=== PATIENT | male | born 1990 | race Caucasian/White ===

== ENCOUNTER 2024-01-28 11:08 | Emergency (ER) | payer BC, SELFPAY ==
--- NOTE | ~2024-01-28 | CT_ITS ---
EXAMINATION: CT abdomen pelvis w con DATE: 01/28/2024 13:39 INDICATION: Bilateral scrotal swelling. Recent vasectomy. TECHNIQUE: Computed tomography (CT) of the abdomen and pelvis was performed with 100 mL Omnipaque 350 intravenous contrast. Automated exposure control and iterative reconstruction technique were employe d. The dose-length product was 1022.66 mGy-cm. COMPARISON: None. FINDINGS: The visualized portions of the lung bases are clear without pneumonia or pleural effusion. The heart size is normal. No pericardial effusion. Pectus excavatum is noted. The liver, gallbladder, spleen, pancreas, adrenal glands, and kidneys are normal. There are no dilated loops of bowel. The a ppendix is normal. There are no pathologically enlarged lymph nodes. There is no free intraperitoneal fluid. There is diffuse scrotal skin thickening. There is a small right hydrocele. There is an umbil ical hernia containing fat. There is moderate degenerative disc disease at L5-S1. IMPRESSION: 1. Scrotal skin thickening with small right hydrocele. Reviewed, dictated and finalized at location A. NATING MACHINE FEEDER
[2024-01-28 11:09] VITALS: BP 135/78; PULSE 97; RESP 18; TEMP 36.5; O2SAT 100
[2024-01-28 11:59] VITALS: BP 132/80; PULSE 76; RESP 16; TEMP 36.6; O2SAT 100
[2024-01-28 12:01] LABS: Basophils Percent Auto 0.3 % (0.2-1.2); Eosinophils Percent Auto 0.3 % (0-4.4); Hematocrit 40.6 % (42.0-52.0); Immature Granulocyte Absolute 0.03 K/mm3 (0.00-0.031); Immature Granulocyte Percent A 0.3 % (0-0.5); Lymphocytes Absolute Auto 1.17 K/mm3 (0.9-3.2); Lymphocytes Percent Auto 11.2 % (18.3-44.2); Mean Corpuscular HGB Conc 34.5 g/dl (32-36); Mean Corpuscular Hemoglobin 30.7 pg (26-34); Monocytes Percent Auto 9.4 % (2.6-8.5); Neutrophils Absolute Auto 8.2 K/mm3 (1.3-6.7); Neutrophils Percent Auto 78.5 % (45.5-73.1); Platelet Count Result 162 k/mm3 (150-375); Red Blood Count 4.56 M/mm3 (4.6-6.20); Red Cell Distribution Width 12.3 % (11.5-14.5); White Blood Count 10.5 K/mm3 (4.5-10.0)
[2024-01-28 12:08] LABS: Add Urine Microscopic? NO; Appearance Urine Clear (Clear); Bilirubin Urine Negative (Negative); Blood Urine Negative (Negative); Color Urine Yellow (Yellow); Glucose Urine UA Negative (Negative); Ketones Urine Negative (Negative); Leukocyte Esterase Ur Negative LEU/UL (Negative); Nitrate Urine Negative (Negative); Protein Urine Negative (Negative); Specific Grav Ur 1.014 (1.001-1.035)
[2024-01-28 12:15] LABS: Alanine Aminotransferase 29 U/L (6-50); Albumin Level 4.3 g/dL (3.5-5.1); Alkaline Phosphatase 60 U/L (38-126); Anion Gap 5 mmol/L (4-12); Aspartate Amino Transferase 27 U/L (17-59); Bilirubin,Total 0.9 mg/dL (0.2-1.3); Blood Urea Nitrogen 16 mg/dL (9-20); Carbon Dioxide 28 mmol/L (22-30); Chloride 102 mmol/L (98-107); Estimated CRCL calculation 98 ml/min; Estimated Glomerular Filt Rate > 60; Glucose 96 mg/dL (65-110); Potassium 4.4 mmol/L (3.4-5.0); Sodium 135 mmol/L (137-145)
[2024-01-28 13:06] VITALS: BP 171/71; PULSE 83; RESP 17; O2SAT 100
--- NOTE | 2024-01-28 13:24 | ED.GENADULT ---
HPI - General Adult General Chief complaint: Urogenital-Male Stated complaint: infection from vasectomy Time Seen by Provider: 01/28/24 13:11 Source: patient Mode of arrival: ambulatory Limitations: no limitations History of Present Illness HPI narrative: This is a 33-year-old male who presents to the ED for chief complaint of scrotal swelling and tenderness over the past couple of days. He is 1 week s/p vasectomy with Dr. Duran (Urology), did call over to give report. He reports did see the patient this morning in clinic and drained an area of fluctuance that only produced serous fluid and no purulence. he is concerned that the area is cellulitic and does not forsee the patient needing emergent surgery. He is sending the patient over to the ER for IV antibiotics. patient states that he had a little bit of pain and swelling expected after the procedure, however over the last 24 hours he has had a rapid increase in swelling of the scrotum associated with tenderness. Reports there was some drainage. He reports a little bit of relief after the aspiration this morning in clinic but is still having significant pain. Denies fevers, chills, urinary symptoms, problems with bowel movements. Related Data Allergies Allergy/AdvReac Type Severity Reaction Status Date / Time No Known Allergies Allergy Unverified 08/29/11 10:15 Review of Systems Review of Systems: All systems as dictated in HPI Exam Narrative: GENERAL: Well-appearing, well-nourished, and in no acute distress. HEAD: Normocephalic, atraumatic. EYES: PERRLA and EOMI. ENT: Nares clear, no rhinorrhea or epistaxis. Mucous membranes moist. Oropharynx without tonsillar hypertrophy exudate or other lesions. NECK: Supple. No adenopathy or masses. CHEST: No respiratory distress. Clear to auscultation. No wheezes rales or rhonchi HEART: Regular rate and rhythm. No murmur heard. Normal peripheral pulses. ABDOMEN: Soft, nontender, nondistended, normal active bowel sounds. MSK: Normal range of motion. No edema. SKIN: Warm, dry, no rash. NEURO: Alert and oriented x4. No focal deficits. PSYCH: Normal mood and affect. : Significant scrotal edema present bilaterally, worse in the low right. Tenderness is worse on the right as well. Tenderness tracks from scrotum into the right side of the groin. There is erythema to the scrotum but no erythema to the pubic region or penis. No evidence of skin breakdown. Surgical sites appear intact Course Vital Signs Vital signs: Vital Signs Temperature 97.7 F 01/28/24 11:09 Pulse Rate 97 01/28/24 11:09 Respiratory Rate 18 01/28/24 11:09 Blood Pressure 135/78 01/28/24 11:09 Pulse Oximetry 100 01/28/24 11:09 Oxygen Delivery Room Air 01/28/24 11:09 Temperature 97.9 F 01/28/24 11:59 Pulse Rate 83 01/28/24 13:06 Respiratory Rate 17 01/28/24 13:06 Blood Pressure 171/71 H 01/28/24 13:06 Pulse Oximetry 100 01/28/24 13:06 Oxygen Delivery Room Air 01/28/24 11:59 Medical Decision Making MDM Narrative Medical decision making narrative: This is a 33-year-old male who presents to the ED for chief complaint of scrotal pain and swelling after vasectomy 1 week ago. Vitals are normal. Exam remarkable for the above with significant scrotal edema present. There is tenderness but no evidence of skin breakdown or gangrene. Lab work shows mildly elevated white count of 10.5. CMP unremarkable. Urinalysis grossly normal. CT abdomen pelvis with IV contrast: IMPRESSION: 1. Scrotal skin thickening with small right hydrocele. During the patient's course, he was given IV pain medications, fluids and Ancef. I discussed the case with his urologist to is stating that he will be out of town and unable to see the patient. There is no on else on staff for this urologist to see the patient. I then spoke with our hospitalist about admitting the patient for observation and IV antibiotics. She was requesting of phone call to our urologist 1st. Was able to speak with Dr. Srivastava (Urology) who was able to see the patient. He feels that the patient is stable for discharge home and actually called the patient's urologist. Urology is requesting that patient is getting a jockstrap for scrotal elevation. Directly after the patient was discharged, I did get a call from Dr. Srivastava requesting Vanco per Dr. Duran (Pt's surgeon), however the patient had already left the department by the time this occurred. I do feel the patient received appropriate treatment with Ancef alone here today. He is receiving Bactrim outpatient which will have MRSA coverage if needed. Patient will be discharged in stable condition. Supportive measures discussed and return precautions given. Patient is understanding and agreeable with plan for discharge with PCP/urology follow-up. Vital Signs Vital Signs: Vital Signs Temperature 97.7 F 01/28/24 11:09 Pulse Rate 97 01/28/24 11:09 Respiratory Rate 18 01/28/24 11:09 Blood Pressure 135/78 01/28/24 11:09 Pulse Oximetry 100 01/28/24 11:09 Oxygen Delivery Room Air 01/28/24 11:09 Temperature 97.9 F 01/28/24 11:59 Pulse Rate 83 01/28/24 13:06 Respiratory Rate 17 01/28/24 13:06 Blood Pressure 171/71 H 01/28/24 13:06 Pulse Oximetry 100 01/28/24 13:06 Oxygen Delivery Room Air 01/28/24 11:59 Lab Data 01/28/24 11:55 01/28/24 11:55 Labs: Lab Results 01/28/24 01/28/24 Range/Units 11:55 12:02 WBC 10.5 H (4.5-10.0) K/mm3 RBC 4.56 L (4.6-6.20) M/mm3 Hgb 14.0 (14.0-18.0) g/dL Hct 40.6 L (42.0-52.0) % MCV 89.0 (80-100) fl MCH 30.7 (26-34) pg MCHC 34.5 (32-36) g/dl RDW 12.3 (11.5-14.5) % Plt Count 162 (150-375) k/mm3 MPV 11.0 H (7.4-10.4) fl Immature Gran % (Auto) 0.3 (0-0.5) % Neut % (Auto) 78.5 H (45.5-73.1) % Lymph % (Auto) 11.2 L (18.3-44.2) % [place] % (Auto) 9.4 H (2.6-8.5) % Eos % (Auto) 0.3 (0-4.4) % Baso % (Auto) 0.3 (0.2-1.2) % Lymph # (Auto) 1.17 (0.9-3.2) K/mm3 [place] # (Auto) 1.0 H (0.1-0.6) K/mm3 Eos # (Auto) 0.0 (0-0.3) K/mm3 Baso # (Auto) 0.0 (0.0-0.1) K/mm3 Abs Immat Gran (auto) 0.03 (0.00-0.031) K/mm3 Absolute Neuts (auto) 8.2 H (1.3-6.7) K/mm3 Absolute Nucleated RBC 0.000 (0.0-0.012) K/mm3 Nucleated RBC % 0.0 (0.0-0.2) % Sodium 135 L (137-145) mmol/L Potassium 4.4 (3.4-5.0) mmol/L Chloride 102 (98-107) mmol/L Carbon Dioxide 28 (22-30) mmol/L Anion Gap 5 (4-12) mmol/L BUN 16 (9-20) mg/dL Creatinine 1.10 (0.7-1.3) mg/dL Estim Creat Clear Calc 98 ml/min Estimated GFR > 60 (59 - ) Glucose 96 (65-110) mg/dL Calcium 9.0 (8.4-10.2) mg/dL Total Bilirubin 0.9 (0.2-1.3) mg/dL AST 27 (17-59) U/L ALT 29 (6-50) U/L Alkaline Phosphatase 60 (38-126) U/L Total Protein 7.0 (6.3-8.2) g/dL Albumin 4.3 (3.5-5.1) g/dL Urine Color Yellow (Yellow) Urine Appearance Clear (Clear) Urine pH 6.0 (5.0-9.0) Ur Specific [place] 1.014 (1.001-1.035) Urine Protein Negative (Negative) mg/dL Urine Glucose (UA) Negative (Negative) mg/dL Urine Ketones Negative (Negative) mg/dL Ur Blood (Man) Negative (Negative) Urine Nitrate Negative (Negative) Urine Bilirubin Negative (Negative) Urine Urobilinogen 1.0 (<2.0) mg/dL Leukocyte Esterase Rfl Negative (Negative) RANDA/UL Discharge Plan Discharge Clinical Impression: Cellulitis of scrotum Patient Disposition: Home, Self-Care Condition: Stable Instructions: Antibiotic Form Additional Instructions: Exam and imaging today are reassuring overall. There is no abscess. Please continue taking previously prescribed antibiotics at home. Use Toradol for regular pain control and avoid other NSAIDs with this. You can take Tylenol as well. Use [place] for breakthrough pain. Do not exceed 4000 mg of acetaminophen and 1 day. If you have any new or worsening symptoms please return to the ER for further evaluation. Prescriptions: New ketorolac 10 mg tablet 10 mg PO Q8H PRN (Reason: pain) Qty: 15 0RF Rx Instructions: maximum total duration of 5 days from all oral, intranasal, or parenteral formulations hydrocodone-acetaminophen 5-325 mg tablet 1 tablet PO Q8H PRN (Reason: pain) Qty: 14 0RF Follow-up/Referrals: PHYSICIAN,ANESTHESIOLOGY TEACHER [Non-Staff] - Time of Disposition: 15:54
[2024-01-28] MEDS: ceFAZolin 1 GM/NS 50 ML 1 GM/50 ML BAG IVPB (13:39)
[2024-01-28] MEDS: ONDANSETRON INJ 4 MG/2 ML VIAL IV PUSH (13:39)
[2024-01-28] MEDS: KETOROLAC 30 MG/ML VIAL (*BKC) IV PUSH (13:39)
[2024-01-28] MEDS: SODIUM CHLORIDE 0.9% IV 1,000 ML 999 ML IV CONT (13:39)
--- NOTE | 2024-01-28 15:54 | P.CONUR_ITS ---
Assessment and Plan Assessment and plan (1) Cellulitis of scrotum: Code(s): N49.2 - Inflammatory disorders of scrotum Status: Acute Plan This is a very pleasant 33-year-old gentleman with scrotal edema/ cellulitis status post vasectomy postop day 6. - CT scan imaging and physical examination not consistent with any additional drainable collections. The patient is hemodynamically stable. - I spoke with Dr. Duran his urologist. Was requested IV vancomycin prior to discharge. - Patient encouraged to elevate scrotum. He will complete his antibiotics. He will follow-up with his local urologist next week. Urology Consult Note HPI Date Seen: 01/28/24 Primary Care Provider: UNKNOWN,DOCTOR Consult Narrative Narrative: Joel Gray is a 33 year old male who presented to the ER today. He underwent vasectomy with Dr. Duran January 21, 2024. The patient did well for the 1st 4 days after the procedure and then had worsening scrotal swelling. He went to urgent care where he was started on oral antibiotics ( Bactrim ). The patient then followed up with Dr. Lechuga earlier today where proximally 20cc of fluid was drained. The patient was sent to the ER for further evaluation and IV antibiotics. Meds Home Medications and Allergies Home Medications Medication Instructions Recorded Confirmed Type hydrocodone 5 mg-acetaminophen 325 1 tablet PO Q8H PRN pain #14 tabs 01/28/24 Rx mg tablet ketorolac 10 mg tablet 10 mg PO Q8H PRN pain #15 tabs 01/28/24 Rx Allergies Allergy/AdvReac Type Severity Reaction Status Date / Time No Known Allergies Allergy Unverified 08/29/11 10:15 Vital Signs Vital Signs - 24 hr 01/28/24 11:09 01/28/24 11:59 01/28/24 13:06 Temperature 36.5 C 36.6 C Pulse Rate 97 76 83 Respiratory Rate 18 16 17 Blood Pressure 135/78 132/80 171/71 H Pulse Oximetry 100 100 100 Oxygen Delivery Room Air Room Air Exam Narrative: The patient is awake alert. He is no acute distress. His breathing is labored. His abdomen is soft nontender nondistended. The patient penis is normal without significant edema. The patient has scrotal swelling right more than left. There is no fluctuance. There is well-healed incisions x3 in the scrotum. There is no drainage. Results Labs 01/28/24 11:55 01/28/24 11:55 Labs: Short CBC 01/28/24 Range/Units 11:55 WBC 10.5 H (4.5-10.0) K/mm3 Hgb 14.0 (14.0-18.0) g/dL Hct 40.6 L (42.0-52.0) % Plt Count 162 (150-375) k/mm3 BMP 01/28/24 11:55 Sodium 135 L Potassium 4.4 Chloride 102 Carbon Dioxide 28 BUN 16 Creatinine 1.10 Glucose 96 Calcium 9.0 Liver Function 01/28/24 Range/Units 11:55 Total Bilirubin 0.9 (0.2-1.3) mg/dL AST 27 (17-59) U/L ALT 29 (6-50) U/L Alkaline Phosphatase 60 (38-126) U/L Albumin 4.3 (3.5-5.1) g/dL Urine 01/28/24 Range/Units 12:02 Urine Color Yellow (Yellow) Urine Appearance Clear (Clear) Urine pH 6.0 (5.0-9.0) Ur Specific [place] 1.014 (1.001-1.035) Urine Protein Negative (Negative) mg/dL Urine Glucose (UA) Negative (Negative) mg/dL Date of Service: 01/28/24 Procedure(s): CT abdomen pelvis w con Accession Number(s): [id number] cc: Joel Meza PA-C; WEB APPLICATION DEV SPECIALIST PHYSICIAN~ EXAMINATION: CT abdomen pelvis w con DATE: 01/28/2024 13:39 INDICATION: Bilateral scrotal swelling. Recent vasectomy. TECHNIQUE: Computed tomography (CT) of the abdomen and pelvis was performed with 100 mL Omnipaque 350 intravenous contrast. Automated exposure control and iterative reconstruction technique were employed. The dose-length product was 1022.66 mGy-cm. COMPARISON: None. FINDINGS: The visualized portions of the lung bases are clear without pneumonia or pleural effusion. The heart size is normal. No pericardial effusion. Pectus excavatum is noted. The liver, gallbladder, spleen, pancreas, adrenal glands, and kidneys are normal. There are no dilated loops of bowel. The appendix is normal. There are no pathologically enlarged lymph nodes. There is no free intraperitoneal fluid. There is diffuse scrotal skin thickening. There is a small right hydrocele. There is an umbilical hernia containing fat. There is moderate degenerative disc disease at L5-S1. IMPRESSION: 1. Scrotal skin thickening with small right hydrocele. Reviewed, dictated and finalized at location A. ONAL INSURANCE ADVISOR
== END 2024-01-28 16:00 | disposition home or self-care (01) ==
PROVIDERS: Emergency Medicine; Emergency Provider Physician Assistant
DX: T81.49XA Infection following a procedure, other surgical site, initial encounter (principal); N49.2 Inflammatory disorders of scrotum; Y83.8 Other surgical procedures as the cause of abnormal reaction of the patient, or of later complication, without mention of misadventure at the time of the procedure
CPT/HCPCS: 36415; 74177; 80053; 81003; 85025; 96365; 96375; 99284; J0690; J1885; J2405; J7030; Q9967